=== PATIENT | female | born 1990 | race Caucasian/White ===

== ENCOUNTER 2022-03-23 00:01 | Inpatient (IN) | payer MEDICAID ==
[~2022-03-23] VITALS: Ht 170.2 cm; Wt 82.6 kg
[~2022-03-23 00:01] MED LIST: FERR325C PO; IBUP-779 PO; MULT-783 PO
[2022-03-23] MEDS ORDERED: NALOXONE HCL 0.4 MG/ML 1ML VIAL IM PRN (00:45)
[2022-03-23] MEDS ORDERED: CARBOPROST TROMETHAMINE 250 MCG/ML AMPUL IM PRN (00:45)
[2022-03-23] MEDS ORDERED: LIDOCAINE HCL 1% 20ML VIAL (Pyxis) INJ INFIL SCH (00:45)
[2022-03-23] MEDS ORDERED: RHO(D) IMMUNE GLOBULIN 300 MCG/SYR IM ONE (00:45)
[2022-03-23] MEDS ORDERED: MISOPROSTOL 100MCG TABLET VG SCH (00:45)
[2022-03-23] MEDS ORDERED: LACTATED RINGERS 1,000 ML IV SCH (00:45)
[2022-03-23] MEDS ORDERED: METHYLERGONOVINE MALEATE 0.2 MG/ML IM PRN (00:45)
[2022-03-23] MEDS: OXYTOCIN 30 UNITS/500ML NS PMX 500 ML IV SCH ×2 (01:09→02:55)
[2022-03-23] MEDS ORDERED: RHO(D) IMMUNE GLOBULIN 300 MCG/SYR IM PRN (01:30)
[2022-03-23] MEDS ORDERED: BENZOCAINE/LANOLIN/ALOE VERA SPRAY TOP PRN (01:30)
[2022-03-23] MEDS ORDERED: IBUPROFEN 400MG TABLET PO PRN (01:30)
[2022-03-23 02:02] LABS: BASOPHILS % 0.1 % (0.0-2.0); EOSINOPHILS % 0.9 % (0.0-5.0); HEMATOCRIT. 39.9 % (36.0-48.0); HEMOGLOBIN. 13.4 g/dL (12.0-16.0); LYMPHOCYTES % 35.3 % (20.0-50.0); MEAN CORPUSCULAR HEMOGLOBIN 30.4 pg (28.0-32.0); MEAN CORPUSCULAR VOLUME 90.6 fL (81.0-99.0); MEAN PLATELET VOLUME 10.1 fl (7.4-10.4); NEUTROPHILS % 55.7 % (40.0-76.0); PLATELET 198 x1000/uL (130-400); RED BLOOD CELL COUNT 4.41 mill/uL (4.2-5.4); RED CELL DISTRIBUTION WIDTH 14.1 % (11.6-14.6)
[2022-03-23 02:03] LABS: CLARITY URINE CLOUDY (CLEAR); COLOR URINE YELLOW (YELLOW); KETONES URINE NEGATIVE (NEGATIVE); LEUKOCYTE ESTERASE URINE 3+ (NEGATIVE); NITRITE URINE NEGATIVE (NEGATIVE); OCCULT BLOOD URINE 2+ (NEGATIVE); PROTEIN URINE NEGATIVE (NEGATIVE); SPECIFIC GRAVITY URINE 1.008 (1.005-1.030); UROBILINOGEN URINE 0.2 E.U./dL (0.2-1.0)
[2022-03-23 02:18] LABS: *AMPHETAMINES SCREEN URINE NEGATIVE (NEGATIVE); *BARBITURATES SCREEN URINE NEGATIVE (NEGATIVE); *BENZODIAZEPINES SCREEN URINE NEGATIVE (NEGATIVE); *COCAINE SCREEN URINE NEGATIVE (NEGATIVE); CANNABINOID URINE SCREEN NEGATIVE (NEGATIVE); METHADONE URINE SCREEN NEGATIVE (NEGATIVE); OPIATES URINE SCREEN NEGATIVE (NEGATIVE); PHENCYCLIDINE URINE SCREEN NEGATIVE (NEGATIVE)
[2022-03-23 02:41] LABS: HEPATITIS B SURFACE ANTIGEN NEGATIVE
[2022-03-23 02:44] LABS: INR 0.9; PARTIAL THROMBOPLASTIN TIME 24.6 sec (23.4-31.0)
[2022-03-23] MEDS: IBUPROFEN 800MG TABLET PO PRN ×2 (02:50→09:07)
[2022-03-23 04:15] VITALS: BP 119/63
[2022-03-23 05:30] VITALS: BP 105/65
[2022-03-23 08:00] VITALS: BP 100/51
[2022-03-23] MEDS: PRENATAL VIT/FE FUMARATE/FA TABLET PO SCH (09:08)
[2022-03-23 16:00] VITALS: BP 112/64
[2022-03-23 20:00] VITALS: BP 114/73
[2022-03-24 04:00] VITALS: BP 105/65
[2022-03-24 06:51] LABS: BASOPHILS % 0.2 % (0.0-2.0); EOSINOPHILS % 2.3 % (0.0-5.0); HEMATOCRIT. 34.5 % (36.0-48.0); HEMOGLOBIN. 11.9 g/dL (12.0-16.0); LYMPHOCYTES % 28.2 % (20.0-50.0); MEAN CORPUSCULAR VOLUME 89.7 fL (81.0-99.0); MEAN PLATELET VOLUME 9.8 fl (7.4-10.4); MONOCYTES % 9.3 % (2.0-8.0); PLATELET 168 x1000/uL (130-400); RED BLOOD CELL COUNT 3.84 mill/uL (4.2-5.4)
[2022-03-24] MEDS: FERROUS SULFATE 325MG TABLET PO SCH ×2 (07:30→12:30)
[2022-03-24 08:30] VITALS: BP 118/70
[2022-03-24] MEDS: PRENATAL VIT/FE FUMARATE/FA TABLET PO SCH (09:00)
[2022-03-24 14:00] VITALS: BP 114/65
[2022-03-24 20:00] VITALS: BP 123/78
[2022-03-24] MEDS ORDERED: LANOLIN OINT 7GM TUBE TOP PRN (21:15)
[2022-03-25 04:00] VITALS: BP 112/55
[2022-03-25] MEDS: FERROUS SULFATE 325MG TABLET PO SCH (07:30)
[2022-03-25] MEDS: PRENATAL VIT/FE FUMARATE/FA TABLET PO SCH ×2 (07:48→14:39)
[2022-03-25] MEDS ORDERED: FENTANYL CITRATE/PF 50MCG/ML 2ML VIAL ONE (08:20)
[2022-03-25] MEDS ORDERED: MIDAZOLAM HCL 2 MG/2 ML VIAL ONE (08:20)
[2022-03-25] MEDS ORDERED: PROPOFOL 200MG/20ML VIAL IV ONE ×2 (08:21→09:03)
[2022-03-25] MEDS ORDERED: LIDOCAINE HCL 1% 20ML VIAL (Pyxis) INJ ONE (08:40)
[2022-03-25] MEDS ORDERED: IBUP-2030 PO (08:45)
[2022-03-25] MEDS ORDERED: ONDANSETRON HCL 4MG/2ML INJ ONE (08:55)
[2022-03-25] MEDS ORDERED: KETOROLAC 60MG/2ML VIAL IM ONE (09:02)
[2022-03-25 14:40] VITALS: BP 112/55
[2022-03-25] MEDS: IBUPROFEN 800MG TABLET PO PRN (14:40)
== END 2022-03-25 19:45 | disposition home or self-care (01) | DRG 541 ==
LOC: 8 EST LDRP 00:01 → OBSVTOIN 00:01 → 8EST 04:22
PROVIDERS: ADMIT Obstetrics & Gynecology; ATTEND Obstetrics & Gynecology
PROC: 10E0XZZ Delivery of Products of Conception, External Approach (ICD-10-PCS; principal; 2022-03-24)
PROC: 0KQM0ZZ Repair Perineum Muscle, Open Approach (ICD-10-PCS; 2022-03-24)
PROC: 0UB70ZZ Excision of Bilateral Fallopian Tubes, Open Approach (ICD-10-PCS; 2022-03-25)
DX: O24.420 Gestational diabetes mellitus in childbirth, diet controlled (principal); Z37.0 Single live birth; D62 Acute posthemorrhagic anemia; O77.0 Labor and delivery complicated by meconium in amniotic fluid; O90.81 Anemia of the puerperium; O69.1XX0 Labor and delivery complicated by cord around neck, with compression, not applicable or unspecified; O70.1 Second degree perineal laceration during delivery; Z20.822 Contact with and (suspected) exposure to COVID-19; Z3A.39 39 weeks gestation of pregnancy
CPT/HCPCS: 36415; 80305; 81003; 85025; 86592; 86703; 86762; 86850; 86900; 87340; 87426; 88302; 99281; J1885; J2250; J2405; J2704; J3010; J3490; J2590